=== PATIENT | male | born 1955 | race Caucasian/White ===

== ENCOUNTER 2024-04-23 10:17 | Emergency (ER) | payer OTHER ==
--- OUTSIDE RECORDS SUMMARY | 2024-04-23 10:23 | XMS REPORT | Continuity of Care Document ---
Author Name Unknown Address [address] [place] [address] [facility] thconnect Address [address] [place] [address] Care Team Providers Care Seo Intern Name Role Phone Judi Conteh Attending Clinician Unavailable Payers Payer Name Policy Type Policy Number Effective Date Expirati on Date Source [place] 53 [id number] [facility] 6 [id number] 2017 00:00:00 [facility] Problems Condition Name Condition Details Condition Category Status Onset Date Resolution Date Last Treatment Date Treating Clinician Comments Source Prediabete s Pre-diabet es Problem [facility] Nicotine dependence Nicotine dependence Problem [facility] [id number] Encounter for general adult medical examinatio n with abnormal findings Problem [facility] Mixed hyperlipid emia Mixed hyperlipid emia Problem [facility] Glaucoma Glaucoma Problem [facility] Real esophagus Real esophagus Problem [facility] Hypertensi on Hypertensi on Problem [facility] Social History Social Habit Start Date Stop Date Quantity Comments Source Sex Assigned At [facility] History of Tobacco Use Current Smoker [facility] Smoking Status Start Date Stop Date Source Current Smoker 2024-04-17 00:00:00 [facility] Medications Ordered Medication Name Filled Medication Name Start Date Stop Date Current Medication? Ordering Clinician Indication Dosage Frequency Signature (SIG) Comments Components Source Xalatan 0.005 % Xalatan 0.005 % No 1{drop_ into_af fected_ eye_in_ the_eve rima} QD Xalatan 0.005 % Aspirin Adult Low Strength 81 MG Aspirin Adult Low Strength 81 MG No 1{table t} QD Aspirin Adult Low Strength 81 MG Omeprazole 20 MG Omeprazole 20 MG No QD Omeprazole 20 MG Carvedilol 25 MG Carvedilol 25 MG No 1{table t_with_ food} BID Carvedilol 25 MG Rosuvastati n Calcium 40 MG Rosuvastati n Calcium 40 MG No QD Rosuvastat in Calcium 40 MG Timolol Maleate 0.5 % Timolol Maleate 0.5 % No 1{drop_ into_af fected_ eye} QD Timolol Maleate 0.5 % Immunizations Ordered Immunization Name Filled Immunization Name Date Status Comments Source Zostavax Zostavax 2020-06-25 11:03:00 Completed [facility] Zostavax Zostavax 2020-06-25 11:03:00 Completed [facility] Zostavax Zostavax 2020-06-25 11:03:00 Completed [facility] Zostavax Zostavax 2020-06-25 11:03:00 Completed [facility] Zostavax Zostavax 2020-03-22 18:25:00 Completed [facility] Zostavax Zostavax 2020-03-22 18:25:00 Completed [facility] Zostavax Zostavax 2020-03-22 18:25:00 Completed [facility] Zostavax Zostavax 2020-03-22 18:25:00 Completed [facility] Flucelvax - single dose syringe Flucelvax - single dose syringe 2020-03-22 18:24:00 Completed [facility] Flucelvax - single dose syringe Flucelvax - single dose syringe 2020-03-22 18:24:00 Completed [facility] Flucelvax - single dose syringe Flucelvax - single dose syringe 2020-03-22 18:24:00 Completed [facility] Flucelvax - single dose syringe Flucelvax - single dose syringe 2020-03-22 18:24:00 Completed [facility] Flucelvax - single dose syringe Flucelvax - single dose syringe Unknown Completed [facility] Zostavax Zostavax Unknown Completed [facility] Flucelvax - single dose syringe Flucelvax - single dose syringe Unknown Completed [facility] Zostavax Zostavax Unknown Completed [facility] Flucelvax - single dose syringe Flucelvax - single dose syringe Unknown Completed [facility] Zostavax Zostavax Unknown Completed [facility] Flucelvax (ccIIV4) - SDS - 0.5mL Flucelvax (ccIIV4) - SDS - 0.5mL Unknown Completed [facility] Zostavax Zostavax Unknown Completed [facility] Flucelvax (ccIIV4) - SDS - 0.5mL Flucelvax (ccIIV4) - SDS - 0.5mL Unknown Completed [facility] Zostavax Zostavax Unknown Completed [facility] Flucelvax (ccIIV4) - SDS - 0.5mL Flucelvax (ccIIV4) - SDS - 0.5mL Unknown Completed [facility] Zostavax Zostavax Unknown Completed [facility] Flucelvax (ccIIV4) - SDS - 0.5mL Flucelvax (ccIIV4) - SDS - 0.5mL Unknown Completed [facility] Zostavax Zostavax Unknown Completed [facility] Flucelvax (ccIIV4) - SDS - 0.5mL Flucelvax (ccIIV4) - SDS - 0.5mL Unknown Completed [facility] Zostavax Zostavax Unknown Completed [facility] Flucelvax (ccIIV4) - SDS - 0.5mL Flucelvax (ccIIV4) - SDS - 0.5mL Unknown Completed [facility] Zostavax Zostavax Unknown Completed [facility] Prevnar 20 (PCV20) Prevnar 20 (PCV20) Unknown Completed [facility] Vital Signs Vital Name Observation Time Observation Value Comments S ource height 2024-03-29 13:20:00 65.5 [in_i] [facility] weight 2024-03-29 13:20:00 161.0 [lb_av] Co [facility] temperature 2024-03-29 13:20:00 97.3 [degF] Com [facility] bmi 2024-03-29 13:20:00 26.38 kg/m2 [facility] oximetry 2024-03-29 13:20:00 96 % [facility] respiratory rate 2024-03-29 13:20:00 16 /min [facility] blood pressure systolic 2024-03-29 13:20:00 140 mm[Hg] [facility] blood pressure diastolic 2024-03-29 13:20:00 94 mm[Hg] [facility] height 2024-03-29 13:20:00 65.5 [in_i] [facility] weight 2024-03-29 13:20:00 161.0 [lb_av] [facility] temperature 2024-03-29 13:20:00 97.3 [degF] Com [facility] bmi 2024-03-29 13:20:00 26.38 kg/m2 [facility] oximetry 2024-03-29 13:20:00 96 % [facility] respiratory rate 2024-03-29 13:20:00 16 /min [facility] blood pressure systolic 2024-03-29 13:20:00 140 mm[Hg] [facility] blood pressure diastolic 2024-03-29 13:20:00 94 mm[Hg] [facility] height 2023-09-07 15:20:00 65.5 [in_i] [facility] weight 2023-09-07 15:20:00 163.2 [lb_av] [facility] temperature 2023-09-07 15:20:00 97.7 [degF] Com [facility] bmi 2023-09-07 15:20:00 26.74 kg/m2 Comm [facility] oximetry 2023-09-07 15:20:00 97 % [facility] respiratory rate 2023-09-07 15:20:00 16 /min [facility] blood pressure systolic 2023-09-07 15:20:00 136 mm[Hg] [facility] blood pressure diastolic 2023-09-07 15:20:00 82 mm[Hg] Common [facility] height 2023-05-05 09:40:00 65.5 [in_i] [facility] weight 2023-05-05 09:40:00 165.0 [lb_av] Co [facility] temperature 2023-05-05 09:40:00 97.8 [degF] Com [facility] bmi 2023-05-05 09:40:00 27.04 kg/m2 Comm [facility] oximetry 2023-05-05 09:40:00 97 % [facility] respiratory rate 2023-05-05 09:40:00 16 /min [facility] blood pressure systolic 2023-05-05 09:40:00 132 mm[Hg] Common [facility] blood pressure diastolic 2023-05-05 09:40:00 88 mm[Hg] [facility] height 2022-11-04 08:40:00 65.5 [in_i] [facility] weight 2022-11-04 08:40:00 165.6 [lb_av] [facility] temperature 2022-11-04 08:40:00 97.7 [degF] Com [facility] bmi 2022-11-04 08:40:00 27.14 kg/m2 [facility] oximetry 2022-11-04 08:40:00 98 % [facility] respiratory rate 2022-11-04 08:40:00 16 /min [facility] blood pressure systolic 2022-11-04 08:40:00 127 mm[Hg] Common [facility] blood pressure diastolic 2022-11-04 08:40:00 74 mm[Hg] Common [facility] height 2022-11-04 09:00:00 65.5 [in_i] [facility] weight 2022-11-04 09:00:00 165.6 [lb_av] [facility] temperature 2022-11-04 09:00:00 97.7 [degF] Com [facility] bmi 2022-11-04 09:00:00 27.14 kg/m2 [facility] oximetry 2022-11-04 09:00:00 96 % [facility] respiratory rate 2022-11-04 09:00:00 16 /min [facility] blood pressure systolic 2022-11-04 09:00:00 127 mm[Hg] [facility] blood pressure diastolic 2022-11-04 09:00:00 74 mm[Hg] [facility] height 2022-06-24 13:40:00 65.5 [in_i] [facility] weight 2022-06-24 13:40:00 168 [lb_av] Comm [facility] temperature 2022-06-24 13:40:00 97.5 [degF] Com mon [facility] bmi 2022-06-24 13:40:00 27.53 kg/m2 [facility] oximetry 2022-06-24 13:40:00 99 % [facility] respiratory rate 2022-06-24 13:40:00 16 /min [facility] blood pressure systolic 2022-06-24 13:40:00 142 mm[Hg] [facility] blood pressure diastolic 2022-06-24 13:40:00 85 mm[Hg] Common [facility] height 2022-05-07 16:20:00 65.5 [in_i] [facility] weight 2022-05-07 16:20:00 168.8 [lb_av] [facility] temperature 2022-05-07 16:20:00 98.2 [degF] Com mon [facility] bmi 2022-05-07 16:20:00 27.66 kg/m2 Comm [facility] oximetry 2022-05-07 16:20:00 97 % [facility] respiratory rate 2022-05-07 16:20:00 17 /min [facility] blood pressure systolic 2022-05-07 16:20:00 159 mm[Hg] [facility] blood pressure diastolic 2022-05-07 16:20:00 94 mm[Hg] [facility] height 2021-07-30 10:00:00 65.5 [in_i] [facility] weight 2021-07-30 10:00:00 163 [lb_av] [facility] temperature 2021-07-30 10:00:00 97.3 [degF] Com mon [facility] bmi 2021-07-30 10:00:00 26.71 kg/m2 [facility] oximetry 2021-07-30 10:00:00 99 % [facility] respiratory rate 2021-07-30 10:00:00 16 /min [facility] blood pressure systolic 2021-07-30 10:00:00 118 mm[Hg] [facility] blood pressure diastolic 2021-07-30 10:00:00 66 mm[Hg] [facility] Encounters Start Date/Time End Date/Time Encounter Type Admission Type Attending [facility] Care Facility Care Department Encounter ID Source 2024-04-18 16:42:00 Out[facility] [id number] [facility] 2024-04-12 13:53:00 Outpatient Wero Jud[facility] [id number] [facility] 2024-03-31 11:06:00 Outpatient [facility] [id number] [facility] 2024-03-28 08:48:00 Outpatient Ahsan Conteha [facility] [id number] [facility] 2024-03-24 11:18:00 Outpatient eWro Judi [facility] [id number] [facility] 2023-05-05 10:16:00 Outpatient Wero Judi [facility] [id number] [facility] 2021-07-30 14:39:09 Outpatient Judi Conteh [facility] [id number] [facility] 2021-07-30 12:13:15 Outpatient Judi Conteh [facility] [id number] [facility] 2024-04-17 00:00:00 2024-04-17 00:00:00 (TEL) [facility] [id number] [facility] 2024-03-29 00:00:00 2024-03-29 00:00:00 INIT ANNUAL [facility] WELLNESS VISIT [facility] [id number] [facility] 2024-03-29 00:00:00 2024-03-29 00:00:00 OFFICE VISIT ESTAB PT LEVEL 4 [facility] [id number] [facility] 2024-03-24 00:00:00 2024-03-24 00:00:00 (TEL) [facility] [id number] [facility] 2023-09-16 00:00:00 2023-09-16 00:00:00 (TEL) [facility] [id number] [facility] 2023-09-07 00:00:00 2023-09-07 00:00:00 OFFICE VISIT ESTAB PT LEVEL 3 [facility] [id number] [facility] 2023-05-05 00:00:00 2023-05-05 00:00:00 OFFICE VISIT ESTAB PT LEVEL 3 [facility] [id number] [facility] 2023-03-18 00:00:00 2023-03-18 00:00:00 (TEL) [facility]C [facility] [id number] [facility] 2023-03-09 00:00:00 2023-03-09 00:00:00 (TEL) [facility]C [facility] [id number] [facility] 2022-12-23 00:00:00 2022-12-23 00:00:00 (TEL) [facility]C [facility] [id number] [facility] 2022-11-04 00:00:00 2022-11-04 00:00:00 OFFICE VISIT ESTAB PT LEVEL 3 [facility] [id number] [facility] 2022-11-04 00:00:00 2022-11-04 00:00:00 WELCOME TO MEDICARE PREV PHY EXAM [facility] [id number] [facility] 2022-06-24 00:00:00 2022-06-24 00:00:00 OFFICE VISIT ESTAB PT LEVEL 1 [facility] [id number] [facility] 2022-05-07 00:00:00 2022-05-07 00:00:00 OFFICE VISIT EST PT LEVEL 3 [facility] [id number] [facility] 2022-03-23 00:00:00 2022-03-23 00:00:00 (TEL) [facility]C [facility] [id number] [facility] 2021-07-30 00:00:00 2021-07-30 00:00:00 PREV VISIT EST AGE 40-64 [facility] [id number] [facility] 2021-01-23 00:00:00 2021-01-23 00:00:00 Outpatient [facility] [id number] [facility] 2020-07-02 00:00:00 2020-07-02 00:00:00 Outpatient [facility] [id number] [facility] 2019-12-19 10:40:00 2019-12-19 10:40:00 [facility] [id number] [facility] 2019-06-13 10:40:00 2019-06-13 10:40:00 [facility] Medicine [id number] [facility] 2018-12-26 15:18:00 2018-12-26 15:18:00 [facility] [id number] [facility] 2018-12-15 10:00:00 2018-12-15 10:00:00 [facility] [id number] [facility] 2018-03-29 08:30:00 2018-03-29 08:30:00 [facility] [id number] [facility] 2018-03-03 13:56:00 2018-03-03 13:56:00 [facility] [id number] [facility] 2018-03-01 11:30:00 2018-03-01 11:30:00 Out[facility] [id number] [facility] Results Test Description Test Time Test Comments Results Result Co mments Source
[2024-04-23] MEDS ORDERED: KETOROLAC 30 MG/ML INJ ONE (10:55)
[2024-04-23] MEDS ORDERED: dexAMETHasone 10 MG/ML VIAL ONE (10:55)
[2024-04-23] MEDS ORDERED: NA CHLORIDE 0.9% 500 ML ONE (10:55)
[2024-04-23 10:59] LABS: Absolute Basophils 0.1 K/uL (0-0.5); Absolute Eosinophils 0.2 K/uL (0-0.5); Absolute Lymphocytes (CBC) 2.1 K/uL (0.7-4.9); Absolute Monocytes 1.2 K/uL (0.1-1.3); Absolute Neutrophil 6.5 K/uL (1.8-8.0); Basophils % 0.8 % (0-1.3); Eosinophils % 1.6 % (0-4.4); Hemoglobin 15.6 g/dL (13.6-17.9); Lymphocytes % 20.7 % (15.3-44.8); MCH 29.9 pg (27.0-35.0); MCHC 33.3 g/dL (32.0-36.0); MCV 89.8 fL (80-100); MPV 6.7 fL (7.6-11.3); Neutrophils % 64.9 % (41.7-73.7); Platelets 279 thou/uL (152-406); RBC Red Blood Cell Count 5.23 M/uL (4.33-5.43); Red Cell Distribution Width 12.4 % (12.1-15.2)
[2024-04-23 11:15] LABS: Albumin 3.6 g/dL (3.4-5.0); Albumin/Globulin Ratio 0.9 (1.1-1.8); Bilirubin Total 0.4 mg/dL (0.2-1.0); Globulin 4.1 g/dL (2.3-3.5); Protein, Total 7.7 g/dL (6.4-8.2)
--- NOTE | 2024-04-23 12:12 | RAD REPORT ---
EXAM: 2 views of the right hip HISTORY: Right hip pain COMPARISON: None FINDINGS: 2 views of the right hip shows no evidence of acute fracture or dislocation. Mild right christina tabular degenerative changes are present. No soft tissue swelling is present. IMPRESSION: No evidence of acute osseous abnormality. Mild right acetabular degenerative changes.
--- NOTE | 2024-04-23 12:13 | RAD REPORT ---
EXAMINATION: XR PELVIS CLINICAL INDICATION: Male, 68 years old. PAIN TECHNIQUE: Frontal view of the pelvis [id number]. COMPARISON: No prior exam. FINDINGS: No evidence of fracture or dislocation. Normal alignment. Soft tissues are unremarkable. Mi ld bilateral acetabular degenerative changes and degenerative changes are present in the lower spine. IMPRESSION: No acute or significant abnormalities.
--- NOTE | 2024-04-23 12:24 | EDPHYS ---
Physician Documentation [facility] Name: Jose Brown Age: 68 yrs Sex: Male : 1955 Arrival Date: 04/23/2024 Time: 10:17 Bed 20 Private MD: ED Physician Lonnie Merida HPI: 04/23 11:29 This 68 yrs old Male presents to ER via Ambulatory with complaints of Hip mary Pain - right. 11:29 The patient or guardian reports decreased range of motion, pain. that occurred at an [facility] unknown site, sustained from unknown reason, There is no obvious deformity, The patient is able to self ambulate. The patient is able to bear their full body weight. The complaints affect the right hip and right upper thigh. Modifying factors: The symptoms are alleviated by remaining still, the symptoms are aggravated by any movement, external rotation, flexion, internal rotation. Associated signs and symptoms: Loss of consciousness: the patient experienced no loss of consciousness. Severity of symptoms: At their worst the symptoms were mild, moderate, in the emergency department the symptoms are unchanged. The patient has not experienced similar symptoms in the past. Historical: - Allergies: 10: No Known Allergies; ll1 - PMHx: 10:29 Hypertensive disorder; ll1 - Immunization history:: Adult Immunizations up to date. - Infectious Disease History:: Denies. - Social history:: Smoking status: Patient denies any tobacco usage or history of. ROS: 11:29 Constitutional: Negative for fever, chills, and weight loss, Eyes: Negative for injury, mary pain, redness, and discharge, ENT: Negative for injury, pain, and discharge, Neck: Negative for injury, pain, and swelling, Cardiovascular: Negative for chest pain, palpitations, and edema, Respiratory: Negative for shortness of breath, cough, wheezing, and pleuritic chest pain, Abdomen/GI: Negative for abdominal pain, nausea, vomiting, diarrhea, and constipation, Back: Negative for injury and pain, : Negative for injury, bleeding, discharge, and swelling, Skin: Negative for injury, rash, and discoloration, Neuro: Negative for headache, weakness, numbness, tingling, and seizure, Psych: Negative for depression, anxiety, suicide ideation, homicidal ideation, and hallucinations, Allergy/Immunology: Negative for hives, rash, and allergies, Endocrine: Negative for neck swelling, polydipsia, polyuria, polyphagia, and marked weight changes, Hematologic/Lymphatic: Negative for swollen nodes, abnormal bleeding, and unusual bruising, 11:29 MS/extremity: Positive for injury or acute deformity, decreased range of motion, pain, tenderness, of the right hip and right upper thigh, Exam: 11:29 Constitutional: This is a well developed, well nourished patient who is awake, alert, mary and in no acute distress. Head/Face: Normocephalic, atraumatic. Eyes: Pupils equal round and reactive to light, extra-ocular motions intact. Lids and lashes normal. Conjunctiva and sclera are non-icteric and not injected. Cornea within normal limits. Periorbital areas with no swelling, redness, or edema. ENT: Nares patent. No nasal discharge, no septal abnormalities noted. Tympanic membranes are normal and external auditory canals are clear. Oropharynx with no redness, swelling, or masses, exudates, or evidence of obstruction, uvula midline. Mucous membranes moist. Neck: Trachea midline, no thyromegaly or masses palpated, and no cervical lymphadenopathy. Supple, full range of motion without nuchal rigidity, or vertebral point tenderness. No Meningismus. Chest/axilla: Normal chest wall appearance and motion. Nontender with no deformity. No lesions are appreciated. Cardiovascular: Regular rate and rhythm with a normal S1 and S2. No gallops, murmurs, or rubs. Normal PMI, no JVD. No pulse deficits. Respiratory: Lungs have equal breath sounds bilaterally, clear to auscultation and percussion. No rales, rhonchi or wheezes noted. No increased work of breathing, no retractions or nasal flaring. Abdomen/GI: Soft, non-tender, with normal bowel sounds. No distension or tympany. No guarding or rebound. No evidence of tenderness throughout. Back: No spinal tenderness. No costovertebral tenderness. Full range of motion. Male : Normal genitalia with no discharge or lesions. Skin: Warm, dry with normal turgor. Normal color with no rashes, no lesions, and no evidence of cellulitis. Neuro: Awake and alert, GCS 15, oriented to person, place, time, and situation. Cranial nerves II-XII grossly intact. Motor strength 5/5 in all extremities. Sensory grossly intact. Cerebellar exam normal. Normal gait. Psych: Awake, alert, with orientation to person, place and time. Behavior, mood, and affect are within normal limits. 11:29 Musculoskeletal/extremity: Extremities: grossly normal except: noted in the right hip and right upper thigh: pain, ROM: limited active range of motion due to pain, limited passive range of motion due to pain, in the right hip and right upper thigh, Circulation is intact in all extremities. Sensation intact. Compartment Syndrome exam of affected extremity: is normal. Weight bearing: able to fully bear weight, without difficulty, DVT Exam: no swelling, no tenderness, negative Homans' sign noted on exam, no appreciated bluish discoloration, no erythema, no increased warmth, pain, Vital Signs: 10:30 BP 161 / 91; Pulse 71; Resp 16; Pulse Ox 100% ; Weight 72.57 kg; Height 5 ft. 6 in. ; ll1 Pain 9/10; 11:01 BP 147 / 97; Pulse 66; Pulse Ox 99% on R/A; MAP 113 mmHg; Pain 6/10; tm6 11:43 BP 137 / 70; Pulse 64; Pulse Ox 99% on R/A; MAP 91 mmHg; Pain 3/10; tm6 12:41 BP 161 / 90; Pulse 66; Resp 19; Temp 97.3; Pulse Ox 97% on R/A; MAP 110 mmHg; Pain 2/10;tm6 10:30 Body Mass Index 25.82 (72.57 kg, 167.64 cm) ll1 10:30 Pain Scale: Adult ll1 11:01 Pain Scale: Adult tm6 11:43 Pain Scale: Adult tm6 12:41 Pain Scale: Adult tm6 MDM: 10:23 Medical Screening Exam initiated [facility] 04/23 10:29 Order name: CBC with Diff; Complete Time: 11:29 [facility] 04/23 10:29 Order name: Comprehensive Metabolic Panel; Complete Time: 11:29 [facility] 04/23 10:29 Order name: Pelvis XRAY [facility] 04/23 10:29 Order name: Hip Right 2 View XRAY [facility] 04/23 11:33 Order name: Crutches; Complete Time: 11:43 [facility] Administered Medications: 10:59 Drug: NS 0.9% IV 500 ml 500 ml IV at 1 bolus once; to be given as a bolus over 30 tm6 minutes Volume: 500 ml; Route: IV; Rate: 1 bolus; Site: right antecubital; 11:44 Follow up: Response: No adverse reaction; IV Status: Completed infusion; IV Intake: tm6 500ml 10:59 Drug: Ketorolac IVP 30 mg IVP once Route: IVP; Site: right antecubital; tm6 11:44 Follow up: Response: No adverse reaction; Pain is decreased tm6 10:59 Drug: Decadron - Dexamethasone IVP 10 mg IVP once Route: IVP; Site: right antecubital; tm6 11:44 Follow up: Response: No adverse reaction tm6 Disposition Summary: 04/23/24 12:23 Discharge Ordered Notes: Location: Home mary Problem: new mary Symptoms: have improved mary Condition: Stable mary Diagnosis - Pain in hip mary - Pain in right hip mary - Osteoarthritis of hip, unspecified mary Followup: mary - With: Private Physician - When: 2 - 3 days - Reason: Recheck today's complaints, Continuance of care, Re-evaluation by your physician Followup: mary - With: Tad Moore MD - When: 2 - 3 days - Reason: Recheck today's complaints, Re-evaluation by your physician Discharge Instructions: - Discharge Summary Sheet mary - Joint Pain mary - Arthritis mary - Musculoskeletal Pain mary - Hip Pain mary - Arthritis, [id number] mary - Joint Pain, [id number] [facility] Forms: - Medication Reconciliation Form mary - Antibiotic Education mary - Prescription Opioid Use mary - Patient Portal Instructions [facility] - Leadership Thank You Letter [facility] Prescriptions: - acetaminophen-codeine 300-30 mg Oral tablet - take 2 tablet ORAL route every 6 hours as needed for pain; 20 tablet; Refills: mary 0, Product Selection Permitted - dexamethasone 4 mg Oral tablet - take 1 tablet ORAL route once daily; 4 tablet; Refills: 0, Product Selection mary Permitted - diclofenac sodium 50 mg Oral tablet, delayed release (enteric coated) - take 1 tablet ORAL route 3 times per day as needed for pain; 21 tablet; mary Refills: 0, Product Selection Permitted Signatures: Dispatcher [employer] Lonnie Bajwa MD MD cha Lewis, Lynsay, RN RN ll1 Janelle Pantoja RN RN tm6
--- NOTE | 2024-04-23 12:24 | ER ---
Nurse's Notes [facility] Name: Jose Brown Age: 68 yrs Sex: Male : 1955 Arrival Date: 04/23/2024 Time: 10:17 Bed 20 Private MD: Diagnosis: Pain in hip;Pain in right hip;Osteoarthritis of hip, unspecified Presentation: 04/23 10:30 Chief complaint: Patient states: R hip pain for 8 weeks. Coronavirus screen: Client ll1 denies travel out of the [place] in the last 14 days. At this time, the client does not indicate any symptoms associated with coronavirus-19. Ebola Screen: Patient denies travel to an Ebola-affected area in the 21 days before illness onset. Initial Sepsis Screen: Does the patient meet any 2 criteria? No. Patient's initial sepsis screen is negative. Does the patient have a suspected source of infection? No. Patient's initial sepsis screen is negative. Risk Assessment: Do you want to hurt yourself or someone else? Patient reports no desire to harm self or others. Onset of symptoms was February 22, 2024. 10:30 Method Of Arrival: Ambulatory ll1 10:30 Acuity: JOVANY 3 ll1 Triage Assessment: 10:30 General: Appears uncomfortable, Behavior is calm, cooperative, appropriate for age. ll1 Pain: Complains of pain in right hip Quality of pain is described as aching. Musculoskeletal: Reports pain in right hip. Historical: - Allergies: 10:29 No Known Allergies; ll1 - PMHx: 10:29 Hypertensive disorder; ll1 - Immunization history:: Adult Immunizations up to date. - Infectious Disease History:: Denies. - Social history:: Smoking status: Patient denies any tobacco usage or history of. Screenin:59 [facility] ED Fall Risk Assessment (Adult) History of falling in the last 3 months, tm6 including since admission No falls in past 3 months (0 pts) Confusion or Disorientation No (0 pts) Intoxicated or Sedated No (0 pts) Impaired Gait No (0 pts) Mobility Assist Device Used No (0 pt) Altered Elimination No (0 pt) Score/Fall Risk Level 0 - 2 = Low Risk Oriented to surroundings, Maintained a safe environment, Educated pt \T\ family on fall prevention, incl call for assistance when getting out of bed. Abuse screen: Denies threats or abuse. Denies injuries from another. Nutritional screening: No deficits noted. Tuberculosis screening: No symptoms or risk factors identified. Assessment: 10:59 General: Appears in no apparent distress. Behavior is calm, cooperative. Pain: tm6 Complains of pain in right femoral area, right hip and anterior aspect of right shoulder Pain currently is 6 out of 10 on a pain scale. at worst was 8 out of 10 on a pain scale. Pain began 8 weeks ago, worsening this week. Neuro: Level of Consciousness is awake, alert, obeys commands, Oriented to person, place, time, situation. Cardiovascular: Patient's skin is warm and dry. Respiratory: Airway is patent Respiratory effort is even, unlabored, Respiratory pattern is regular, symmetrical. GI: No signs and/or symptoms were reported involving the gastrointestinal system. Abdomen is flat, non-distended. : No signs and/or symptoms were reported regarding the genitourinary system. EENT: No signs and/or symptoms were reported regarding the EENT system. Derm: No signs and/or symptoms reported regarding the dermatologic system. Musculoskeletal: Reports pain in right femoral area, right hip and anterior aspect of right shoulder since 8 weeks ago. Pain is 6 out of 10 on a pain scale. 11:44 Reassessment: Patient and/or family updated on plan of care and expected duration. Pain tm6 level reassessed. Patient is alert, oriented x 3, equal unlabored respirations, skin warm/dry/pink. Patient states feeling better. 12:41 Reassessment: Patient and/or family updated on plan of care and expected duration. Pain tm6 level reassessed. Patient is alert, oriented x 3, equal unlabored respirations, skin warm/dry/pink. Patient states feeling better. Vital Signs: 10:30 BP 161 / 91; Pulse 71; Resp 16; Pulse Ox 100% ; Weight 72.57 kg; Height 5 ft. 6 in. ; ll1 Pain 9/10; 11:01 BP 147 / 97; Pulse 66; Pulse Ox 99% on R/A; MAP 113 mmHg; Pain 6/10; tm6 11:43 BP 137 / 70; Pulse 64; Pulse Ox 99% on R/A; MAP 91 mmHg; Pain 3/10; tm6 12:41 BP 161 / 90; Pulse 66; Resp 19; Temp 97.3; Pulse Ox 97% on R/A; MAP 110 mmHg; Pain 2/10;tm6 10:30 Body Mass Index 25.82 (72.57 kg, 167.64 cm) ll1 10:30 Pain Scale: Adult ll1 11:01 Pain Scale: Adult tm6 11:43 Pain Scale: Adult tm6 12:41 Pain Scale: Adult tm6 ED Course: 10:22 Patient arrived in ED. im 10:23 Lonnie Merida MD is Attending Physician. mary 10:31 Triage completed. ll1 10:43 Janelle Pantoja, SOBEIDA is Primary Nurse. tm6 10:52 Comprehensive Metabolic Panel Sent. tm6 10:52 CBC with Diff Sent. tm6 10:52 Inserted saline lock: 20 gauge in right antecubital area, using aseptic technique. tm6 Blood collected. Flushed with 10 mL NS. 10:59 Patient has correct armband on for positive identification. Bed in low position. Call tm6 light in reach. Provided Education on: use of call meier; plan of care. Client placed on continuous cardiac and pulse oximetry monitoring. NIBP monitoring applied. Pulse ox on. NIBP on. Door closed. Noise minimized. 10:59 Arm band placed on right wrist. tm6 12:02 Pelvis XRAY In Process Unspecified. EDMS 12:02 Hip Right 2 View XRAY In Process Unspecified. EDMS 12:23 Tad Moore MD is Referral Physician. mary 12:41 No provider procedures requiring assistance completed. IV discontinued, intact, tm6 bleeding controlled, No redness/swelling at site. Pressure dressing applied. 12:42 Crutch training done. tm6 Administered Medications: 10:59 Drug: NS 0.9% IV 500 ml 500 ml IV at 1 bolus once; to be given as a bolus over 30 tm6 minutes Volume: 500 ml; Route: IV; Rate: 1 bolus; Site: right antecubital; 11:44 Follow up: Response: No adverse reaction; IV Status: Completed infusion; IV Intake: tm6 500ml 10:59 Drug: Ketorolac IVP 30 mg IVP once Route: IVP; Site: right antecubital; tm6 11:44 Follow up: Response: No adverse reaction; Pain is decreased tm6 10:59 Drug: Decadron - Dexamethasone IVP 10 mg IVP once Route: IVP; Site: right antecubital; tm6 11:44 Follow up: Response: No adverse reaction tm6 Medication: 10:59 VIS not applicable for this client. tm6 Intake: 11:44 IV: 500ml; Total: 500ml. tm6 Outcome: 12:23 Discharge ordered by . mary 12:42 Discharged to home ambulatory, with crutches, tm6 12:42 Condition: stable 12:42 Discharge instructions given to patient, Instructed on discharge instructions, follow up and referral plans. medication usage, crutch walking, Demonstrated understanding of instructions, follow-up care, medications, crutch walking, Prescriptions given X 3, 12:42 Patient left the ED. tm6 Signatures: Dispatcher [employer] EDLonnie Deluna MD MD cha Lewis, Lynsay, RN RN ll1 Juju Sky Tawney, RN RN tm6
[2024-04-23 16:20] VITALS: BP 161/90; TEMP 97.3; O2SAT 97
== END 2024-04-23 12:42 | disposition home or self-care (01) ==
LOC: ER 10:17
DX: M16.11 Unilateral primary osteoarthritis, right hip (principal); I10 Essential (primary) hypertension
CPT/HCPCS: 96361; 85025; 36415; 80053; 72170; 73502; 96375; 96374; 99284; J1100; J7040

== ENCOUNTER 2024-06-23 05:26 | Day surgery (SDC) | payer OTHER ==
[2024-06-20 09:14] LABS: Anion Gap 5.9 mEq/L (5.0-15.0); Potassium 3.9 mEq/L (3.5-5.1)
[2024-06-20 09:31] LABS: Absolute Eosinophils 0.3 K/uL (0-0.5); Absolute Lymphocytes (CBC) 2.1 K/uL (0.7-4.9); Absolute Monocytes 0.7 K/uL (0.1-1.3); Absolute Neutrophil 5.5 K/uL (1.8-8.0); Basophils % 0.5 % (0-1.3); Eosinophils % 3.4 % (0-4.4); Hematocrit 45.1 % (39.6-49.0); Hemoglobin 15.2 g/dL (13.6-17.9); Lymphocytes % 24.7 % (15.3-44.8); MCH 29.4 pg (27.0-35.0); MCHC 33.6 g/dL (32.0-36.0); MCV 87.3 fL (80-100); MPV 6.5 fL (7.6-11.3); Monocytes % 7.9 % (3.3-12.3); Neutrophils % 63.5 % (41.7-73.7); Nucleated Red Blood Cells % 0.1 % (0-0); Platelets 287 thou/uL (152-406); RBC Red Blood Cell Count 5.17 M/uL (4.33-5.43); Red Cell Distribution Width 13.2 % (12.1-15.2)
[2024-06-20 09:32] LABS: PT Prothrombin Time 13.1 SECONDS (9.4-12.5); PTT, Activated Partial Thromb 39.1 SECONDS (24.3-36.9); Protime INR 1.18
--- NOTE | 2024-06-20 11:13 | RAD REPORT ---
EXAMINATION: TWO VIEW CHEST XR CLINICAL INDICATION: pre op pending shoulder surgery TECHNIQUE: 2 views of the chest was performed. COMPARISON: No prior exam. FINDINGS: The lungs are well inflated and clear. The heart is upper limit of normal in size. No displaced fract ures evident. IMPRESSION: No acute or significant abnormalities.
--- NOTE | 2024-06-20 11:56 | EKG ---
Test Date: 2024-06-20 Test Time: 10:01:58 Wall Cleaner: LOWELL MEASUREMENT RESULTS: Intervals: Rate: 58 WI: 140 QRSD: 104 QT: 418 QTc: 410 [place]: P: 62 WI: 140 QRS: 77 T: 61 INTERPRETIVE STATEMENTS: Sinus bradycardia Incomplete right bundle branch block Borderline ECG Compared to ECG 12/09/2022 08:51:36 Sinus rhythm no longer present Electronically Signed On 06-20-24 11:55:24 [employer] by Fareed Chinchilla
[2024-06-23] MEDS: Ringers Lactate 1,000 ML IV ONE ×2 (05:50→08:45)
[2024-06-23] MEDS ORDERED: LIDOCAINE 1% MPF 5 ML VIAL ONE (05:58)
[2024-06-23] MEDS ORDERED: dexAMETHasone 10 MG/ML VIAL ONE (05:58)
[2024-06-23] MEDS ORDERED: EPINEPHRINE 1 MG/ML VIAL ONE (05:59)
[2024-06-23] MEDS ORDERED: FENTANYL CITR 100 MCG/2 ML ONE (05:59)
[2024-06-23] MEDS ORDERED: BUPIVACAINE 0.5% PF 10 ML VIAL ONE (05:59)
[2024-06-23] MEDS ORDERED: MIDAZOLAM HCL 2 MG/2 ML INJ ONE (05:59)
[2024-06-23] MEDS ORDERED: dexAMETHasone 4 MG/ML VIAL ONE (07:02)
[2024-06-23] MEDS ORDERED: ONDANSETRON 4 MG/2 ML VIAL ONE (07:02)
[2024-06-23] MEDS ORDERED: KETOROLAC 30 MG/ML INJ ONE (07:02)
[2024-06-23] MEDS ORDERED: propofoL 200 MG/20 ML VIAL IV ONE (07:02)
[2024-06-23] MEDS ORDERED: ROCURONIUM 50 MG/5 ML VIAL IV ONE (07:02)
[2024-06-23] MEDS ORDERED: LIDOCAINE 2% MPF 5 ML VIAL ONE (07:02)
[2024-06-23] MEDS ORDERED: EPHEDRINE SULF 50 MG/ML VIAL ONE (07:55)
[2024-06-23] MEDS: CEFAZOLIN SODIUM 1 GM/VIAL ONE (07:57)
[2024-06-23] MEDS: EPINEPHRINE 1 MG/ML VIAL ONE (08:18)
--- NOTE | 2024-06-23 09:32 | P.BOP ---
Preoperative diagnosis: Right shoulder rotator cuff tear, biceps tendinitis, impingement syndrome Postoperative diagnosis: same Primary procedure: Right shoulder arthroscopic rotator cuff repair Secondary procedure: Right shoulder arthroscopic biceps tenotomy Other procedure(s): Right shoulder arthroscopic subacromial decompression Estimated blood loss: 5 cc Specimen: None Findings: See dictation Anesthesia: General Complications: None Implants: 1-4.75 mm Arthrex swivel lock Fluids & blood products: Per anesthesia record Transferred to: Recovery Room Condition: Good
--- NOTE | 2024-06-23 09:35 | P.OP ---
Preoperative diagnosis: Right shoulder rotator cuff tear, biceps tendinitis, impingement syndrome Postoperative diagnosis: Same Primary procedure: Right shoulder arthroscopic rotator cuff repair Secondary procedure: Right shoulder arthroscopic biceps tenotomy Other procedure(s): Right shoulder arthroscopic subacromial decompression Anesthesia: General Estimated blood loss: 5 cc Specimen: None Findings: See dictation Complications: None Complications: Indication For Procedure: The patient is a 68-year-old male who presented to my clinic with signs, symptoms, and MRI findings consistent with a right shoulder full-thickness rotator cuff tear. I discussed with the patient risks and benefits associated with operative and nonoperative treatment. He expressed understanding and elected to proceed with operative treatment. Description Of Procedure: After informed consent was obtained, the patient was identified in the preoperative holding area. The right upper extremity was marked. The patient then was brought to the PACU where he underwent a right- sided interscalene block performed by Anesthesia. The patient was brought back to the operating room, transferred to the operative table in supine fashion, placed under general endotracheal anesthesia. He was then placed in a beach chair position with his extremities well padded. The right upper extremity was then prepped and draped in usual sterile fashion. A time-out was initiated. The correct patient and procedure were performed and identified. The patient did receive preoperative prophylactic antibiotics. Via the posterior portal position, a spinal needle was introduced in the glenohumeral joint and the shoulder was injected with 30 cc of normal saline to distend the capsule. A stab incision was made posteriorly and a posterior portal was created. Arthroscope was brought in via the posterior portal position and diagnostic arthroscopy was performed. Under direct visualization, an anterior portal and cannula were created. The patient was noted to have a type 1 SLAP tear, which was debrided using the arthroscopic shaver. There were no significant instability of the superior labrum or anterior posterior labrum, which were stable to probe. There was fraying and tenosynovitis of the bicipital tendon both intra-articular and extra-articular. A biceps tenotomy was performed using a meniscal biter. The anchor was then debrided using the arthroscopic shaver. Subscapularis was found to to have a partial-thickness tear over the superior border which was debrided using an arthroscopic shaver. The remaining tendon was stable and intact to probe. There were no loose bodies within the axillary pouch. The patient was noted to have a full-thickness tear of the anterior aspect of the supraspinatus. A lateral portal was created and an arthroscopic shaver was then used to debride the greater tuberosity. The rotator cuff tear was noted to reduce to the greater tuberosity. Greater tuberosity was debrided using the arthroscopic shaver to create a bleeding bony bed. The undersurface of the rotator cuff tear was also debrided using the arthroscopic shaver to remove any unhealthy tissue. The arthroscope was then brought in the subacromial space. A subacromial bursectomy was performed using arthroscopic sh aver. The patient was noted to have a full-thickness tear of the supraspinatus, without retraction. The rotator cuff tear was small and without retraction and was repaired using a speed fix configuration. A fiber tape suture was then passed through the rotator cuff tear in an inverted horizontal mattress type fashion. The 2 limbs were then brought out to a swivel lock laterally over the greater tuberosity with fixation with overall good reduction of the tendon on the greater tuberosity. The remaining suture limbs were cut. There was some significant fraying of a coracoacromial ligament as well as some undersurface spurring of the acromion and acromioplasty was performed using a radiofrequency ablator and an arthroscopic bur. Arthroscopic instruments were then removed without complication. Wounds were then irrigated thoroughly with normal saline. Subcutaneous tissue was approximated using a 2-0 Vicryl. Portals were approximated using a 3-0 Monocryl. Sterile dressings were applied. Shoulder immobilizer was placed. The patient was awakened and transferred to PACU in stable condition. Postoperative Plan: The patient will be nonweightbearing in a shoulder immobilizer for 6 weeks. We will follow the medium rotator cuff repair protocol 4 weeks postoperatively. Implants: 1-4.75 mm Arthrex swivel lock Fluids & blood products: Per anesthesia record Transferred to: Recovery Room Condition: Good
--- NOTE | 2024-06-23 10:12 | RAD REPORT ---
EXAM:Shoulder 1 View HISTORY: s/p rotator cuff repair RIGHT COMPARISON: None FINDINGS/IMPRESSION: Single frontal projection of the right shoulder. Mild AC joint degenerative cruz ges. Mild glenohumeral degenerative changes. No fracture or dislocation.
[2024-06-23 10:15] VITALS: BP 151/84; TEMP 97.1; O2SAT 99
== END 2024-06-23 10:40 | disposition home or self-care (01) ==
LOC: OR 05:26
PROVIDERS: ATTEND Orthopaedic Surgery Sports Medicine
PROC: 0RNJ4ZZ Release Right Shoulder Joint, Percutaneous Endoscopic Approach (ICD-10-PCS; principal; 2024-06-23 07:30)
DX: M75.101 Unspecified rotator cuff tear or rupture of right shoulder, not specified as traumatic (principal); M75.21 Bicipital tendinitis, right shoulder; M75.41 Impingement syndrome of right shoulder
CPT/HCPCS: 93005; 85025; 80048; 36415; 85610; 85730; 71046; 73020; 29827; 29826; J2704; J1100 ×2; J2003 ×2; J2250; J3010; J0171 ×2; J2405; J7120 ×2; J0690